=== PATIENT | male | born 1970 | race Caucasian/White ===

== ENCOUNTER 2020-12-15 21:49 | Inpatient (IN) | payer OTHER ==
[~2020-12-15] VITALS: Ht 182.8 cm; Wt 83.0 kg
--- NOTE | 2020-12-15 22:00 | ED General ---
General Stated Complaint: CP Source of Information: Patient, Police Exam Limitations: No Limitations History of Present Illness Date Seen by Provider: Dec 15, 2020 Time Seen by Provider: 22:00 Initial Comments Patient is a 50-year-old incarcerated male currently residing in [facility] who presents with substernal chest pain starting 90 minutes prior to ED arrival. Onset was at rest. It is nonradiating. States scribed as dull and nonreproducible. It is not relieved with position change to rest. Patient noted to be hypertensive one nineties over one tens. He has been incarcerated 5 days and only resumed his high blood pressure medication 2 days ago. Patient takes losartan and is unsure of the dose. He denies shortness of breath nausea vomiting sweats. Denies back pain, flank pain. No history of CAD, aneurysm or dissection. History of IV drug use and HIV. Patient currently incarcerated for drug-related charges including possession of methamphetamines. Reports a loose cough. No fever chills. No nausea or vomiting. No other symptoms or complaints. 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 Timing/Duration: 1-3 Hours Severity: Moderate Modifying Factors: improves with Other Allergies and Home Medications Allergies Uncoded Allergies: HIV Medication (Allergy, Unknown, 12/15/20) He is unsure of what the name of the medication is, he just knows its an HIV medication. Patient Home Medication List Home Medication List Reviewed: Yes Review of Systems Review of Systems Constitutional: see HPI EENTM: see HPI Respiratory: see HPI Cardiovascular: see HPI Gastrointestinal: see HPI Genitourinary: see HPI Musculoskeletal: see HPI Psychiatric/Neurological: See HPI Hematologic/Lymphatic: See HPI Immunological/Allergic: see HPI All Other Systems Reviewed Negative Unless Noted: Yes Past Ethhyqn-Nfohwv-Jovhda Hx Patient Social History Tobacco Use?: Yes Physical Exam Vital Signs Vital Signs - First Documented 12/15/20 21:50 Temp 36.6 Pulse 114 Resp 18 B/P (MAP) 159/118 (132) Pulse Ox 99 O2 Delivery Room Air Capillary Refill : Height, Weight, BMI Height: '" Weight: lbs. oz. kg; BMI Method: General Appearance: No Apparent Distress, Anxious Eyes: Bilateral Eye Normal Inspection, Bilateral Eye PERRL, Bilateral Eye EOMI HEENT: PERRL/EOMI, Normal ENT Inspection, Pharynx Normal Neck: Non Tender, Supple Respiratory: Chest Non Tender, Lungs Clear Cardiovascular: Regular Rate, Rhythm, No Edema Gastrointestinal: Non Tender, Soft Back: Normal Inspection, No CVA Tenderness Extremity: No Calf Tenderness Neurologic/Psychiatric: Alert, Oriented x3 Skin: Normal Color, Diaphoresis Focused Exam Sepsis Stage: Ruled Out Progress/Results/Core Measures Suspected Sepsis SIRS Temperature: Pulse: Respiratory Rate: Laboratory Tests 12/15/20 21:55: White Blood Count 14.6H Blood Pressure / Mean: Laboratory Tests 12/15/20 21:55: Creatinine 0.90, Platelet Count 369, Total Bilirubin 0.4 Results/Orders Lab Results Laboratory Tests Test 12/15/20 21:55 Range/Units White Blood Count 14.6 H 4.3-11.0 10^3/uL Red Blood Count 5.41 4.30-5.52 10^6/uL Hemoglobin 16.3 13.3-17.7 g/dL Hematocrit 48 40-54 % Mean Corpuscular Volume 88 80-99 fL Mean Corpuscular Hemoglobin 30 25-34 pg Mean Corpuscular Hemoglobin Concent 34 32-36 g/dL Red Cell Distribution Width 13.2 10.0-14.5 % Platelet Count 369 130-400 10^3/uL Mean Platelet Volume 9.8 9.0-12.2 fL Immature Granulocyte % (Auto) 0 % Neutrophils (%) (Auto) 46 42-75 % Lymphocytes (%) (Auto) 44 12-44 % Monocytes (%) (Auto) 8 0-12 % Eosinophils (%) (Auto) 1 0-10 % Basophils (%) (Auto) 1 0-10 % Neutrophils # (Auto) 6.7 1.8-7.8 X 10^3 Lymphocytes # (Auto) 6.4 H 1.0-4.0 X 10^3 Monocytes # (Auto) 1.2 H 0.0-1.0 X 10^3 Eosinophils # (Auto) 0.1 0.0-0.3 10^3/uL Basophils # (Auto) 0.1 0.0-0.1 10^3/uL Immature Granulocyte # (Auto) 0.0 0.0-0.1 10^3/uL Sodium Level 140 135-145 MMOL/L Potassium Level 3.5 L 3.6-5.0 MMOL/L Chloride Level 99 98-107 MMOL/L Carbon Dioxide Level 27 21-32 MMOL/L Anion Gap 14 5-14 MMOL/L Blood Urea Nitrogen 10 7-18 MG/DL Creatinine 0.90 0.60-1.30 MG/DL Estimat Glomerular Filtration Rate 89 BUN/Creatinine Ratio 11 Glucose Level 122 H 70-105 MG/DL Calcium Level 10.0 8.5-10.1 MG/DL Corrected Calcium 8.5-10.1 MG/DL Total Bilirubin 0.4 0.1-1.0 MG/DL Aspartate Amino Transf (AST/SGOT) 15 5-34 U/L Alanine Aminotransferase (ALT/SGPT) 14 0-55 U/L Alkaline Phosphatase 103 40-136 U/L Troponin I < 0.30 <0.30 NG/ML Total Protein 8.2 6.4-8.2 GM/DL Albumin 4.8 H 3.2-4.5 GM/DL My Orders Orders - OSCAR KIM DO Troponin I Fs (12/15/20 21:59) Chest 1 View Ap/Pa Only (12/15/20 21:59) Ekg-Prn For Chest Pain Or Rhyt (12/15/20 21:59) Cbc With Automated Diff (12/15/20 21:59) Comprehensive Metabolic Panel (12/15/20 21:59) Manual Differential (12/15/20 21:55) Drug Screen Stat (Urine) (12/15/20 22:16) Fibrin Degradation Products (12/15/20 22:16) Aspirin Chewable Tablet (Baby Aspirin Ch (12/16/20 09:00) Nitroglycerin Ointment (Nitrobid Ointme (12/15/20 22:30) Labetalol Injection (Normodyne Injection (12/15/20 22:30) Ekg Tracing (12/15/20 22:32) Ed Iv/Invasive Line Start (12/15/20 22:32) Vital Signs/I&O 12/15/20 21:50 Temp 36.6 Pulse 114 Resp 18 B/P (MAP) 159/118 (132) Pulse Ox 99 O2 Delivery Room Air Capillary Refill : Departure Communication (Admissions) EKG: Sinus rhythm with left anterior fascicular block, anterior septal Q waves. No acute ST-T wave changes. Chest x-ray: No acute cardiopulmonary disease. Atypical chest pain in the setting of accelerated hypertension. No acute EKG changes. Troponin negative. D-dimer pending. Repeat IV labetalol, aspirin and nitroglycerin given. Blood pressure improved. Patient resting more comfortably. Anticipate admission to hospitalist service at [facility] Impression Primary Impression: Chest pain Additional Impression: Accelerated hypertension Disposition: ADMITTED INPATIENT Condition: Stable Admissions Decision to Admit Reason: Admit from ER (General) Decision to Admit/Date: Dec 15, 2020 Time/Decision to Admit Time: 22:37 OSCAR KIM DO Dec 15, 2020 22:00
[2020-12-15 22:01] LABS: HEMATOCRIT 48 % (40-54); HEMOGLOBIN 16.3 g/dL (13.3-17.7); MEAN CORPUSCULAR HEMOGLOBIN 30 pg (25-34); WHITE BLOOD COUNT 14.6 10^3/uL (4.3-11.0)
[2020-12-15 22:02] LABS: BASOPHILS # (AUTO) 0.1 10^3/uL (0.0-0.1); BASOPHILS % (AUTO) 1 % (0-10); EOSINOPHILS # (AUTO) 0.1 10^3/uL (0.0-0.3); EOSINOPHILS % (AUTO) 1 % (0-10); LYMPHOCYTES # (AUTO) 6.4 X 10^3 (1.0-4.0); LYMPHOCYTES % (AUTO) 44 % (12-44); MEAN CORPUSCULAR HGB CONC 34 g/dL (32-36); MEAN CORPUSCULAR VOLUME 88 fL (80-99); MEAN PLATELET VOLUME 9.8 fL (9.0-12.2); MONOCYTES # (AUTO) 1.2 X 10^3 (0.0-1.0); MONOCYTES % (AUTO) 8 % (0-12); NEUTROPHILS # (AUTO) 6.7 X 10^3 (1.8-7.8); NEUTROPHILS % (AUTO) 46 % (42-75); PLATELET COUNT 369 10^3/uL (130-400)
--- NOTE | 2020-12-15 22:13 | Diagnostic Imaging Report ---
EXAMINATION: Chest 1 view. HISTORY: Chest pain. COMPARISON: None available. FINDINGS: Heart size and pulmonary vasculature are normal. The lungs are clear without consolidation, pleural effusion or pneumothorax. The osseous structures are intact. IMPRESSION: No acute radiographic abnormality in the chest. Dictated by: Dictated on workstation # [id number]
[2020-12-15 22:30] LABS: ALANINE AMINOTRANSFERASE 14 U/L (0-55); ALBUMIN 4.8 GM/DL (3.2-4.5); ALKALINE PHOSPHATASE 103 U/L (40-136); BILIRUBIN,TOTAL 0.4 MG/DL (0.1-1.0); BUN/CREATININE RATIO 11; CARBON DIOXIDE 27 MMOL/L (21-32); CHLORIDE 99 MMOL/L (98-107); GFR ESTIMATED 89; GLUCOSE 122 MG/DL (70-105); POTASSIUM 3.5 MMOL/L (3.6-5.0); SODIUM 140 MMOL/L (135-145); TOTAL PROTEIN 8.2 GM/DL (6.4-8.2)
[2020-12-15] MEDS ORDERED: NITROGLYCERIN 2% OINT 1 GM UNIT DOSE PACKET TOP ONE (22:30)
[2020-12-15] MEDS ORDERED: LABETALOL HCL 20 MG/4 ML VIAL IV ONE ×2 (22:30→22:45)
[2020-12-15] MEDS ORDERED: ASPIRIN 81 MG CHEW (CHILDREN'S ASA) ONE (22:35)
[2020-12-15 22:38] LABS: BAND NEUTROPHILS 1 %; EOSINOPHILS % (MANUAL) 1 %; LYMPHOCYTES % (MANUAL) 45 %; MONOCYTES % (MANUAL) 7 %; NEUTROPHILS % (MANUAL) 46 %
[2020-12-15] MEDS ORDERED: FAMOTIDINE 20MG/2ML IV (PEPCID) IVP ONE (22:45)
[2020-12-15 23:02] LABS: AMPHETAMINE SCREEN, URINE NEGATIVE (NEGATIVE); BARBITURATE SCREEN URINE NEGATIVE (NEGATIVE); BENZODIAZEPINES SCREEN URINE NEGATIVE (NEGATIVE); CANNABINOID SCREEN, URINE POSITIVE (NEGATIVE); COCAINE SCREEN URINE NEGATIVE (NEGATIVE); METHADONE STAT NEGATIVE (NEGATIVE); METHAMPHETAMINE SCREEN URINE S NEGATIVE (NEGATIVE); OPIATE SCREEN URINE NEGATIVE (NEGATIVE); OXYCODONE STAT NEGATIVE (NEGATIVE); PROPOXYPHENE STAT NEGATIVE (NEGATIVE); TRICYCLIC ANTIDEPRESSANTS SCRE NEGATIVE (NEGATIVE)
[2020-12-16 00:47] VITALS: BP 136/92
[2020-12-16] MEDS ORDERED: LABETALOL HCL 20 MG/4 ML VIAL IV PRN (01:00)
[2020-12-16 04:00] VITALS: BP 117/82
[2020-12-16] MEDS: NITROGLYCERIN 2% OINT 1 GM UNIT DOSE PACKET TOP SCH ×2 (05:38→13:08)
[2020-12-16 05:53] LABS: BASOPHILS # (AUTO) 0.1 10^3/uL (0.0-0.1); BASOPHILS % (AUTO) 1 % (0-10); EOSINOPHILS # (AUTO) 0.2 10^3/uL (0.0-0.3); EOSINOPHILS % (AUTO) 1 % (0-10); HEMATOCRIT 42 % (40-54); HEMOGLOBIN 14.2 g/dL (13.3-17.7); LYMPHOCYTES # (AUTO) 5.8 10^3/uL (1.0-4.0); LYMPHOCYTES % (AUTO) 38 % (12-44); MEAN CORPUSCULAR HEMOGLOBIN 30 pg (25-34); MEAN CORPUSCULAR HGB CONC 34 g/dL (32-36); MEAN CORPUSCULAR VOLUME 88 fL (80-99); MEAN PLATELET VOLUME 9.7 fL (9.0-12.2); MONOCYTES # (AUTO) 1.3 10^3/uL (0.0-1.0); MONOCYTES % (AUTO) 9 % (0-12); NEUTROPHILS # (AUTO) 7.9 10^3/uL (1.8-7.8); NEUTROPHILS % (AUTO) 51 % (42-75); PLATELET COUNT 317 10^3/uL (130-400); WHITE BLOOD COUNT 15.4 10^3/uL (4.3-11.0)
[2020-12-16 06:12] LABS: CHLORIDE 105 MMOL/L (98-107); POTASSIUM 3.5 MMOL/L (3.6-5.0); SODIUM 140 MMOL/L (135-145)
[2020-12-16 06:14] LABS: CALCIUM 9.3 MG/DL (8.5-10.1); GLUCOSE 98 MG/DL (70-105)
[2020-12-16 06:16] LABS: CARBON DIOXIDE 22 MMOL/L (21-32)
[2020-12-16 06:18] LABS: CREATININE SERUM 0.87 MG/DL (0.60-1.30); GFR ESTIMATED 92
[2020-12-16 06:19] LABS: BUN/CREATININE RATIO 14
[2020-12-16 07:57] VITALS: BP 121/70
[2020-12-16] MEDS ORDERED: ASPIRIN 81 MG CHEW (CHILDREN'S ASA) PO SCH (09:00)
[2020-12-16] MEDS ORDERED: ASPIRIN E.C. 81 MG (ECOTRIN) TAB PO SCH (09:00)
--- NOTE | 2020-12-16 09:55 | Short Stay Summary-Hospitalist ---
History of Present Illness HPI/Chief Complaint Patient is a 50-year-old male with a past medical history of hypertension, IV drug abuse, and HIV with reported undetectable viral load who presented to the emergency department due to abrupt onset of chest pain with nausea and vomiting. He states he was at rest when this started but was very severe. He was very nauseous and vomited multiple times. [facility] He denies any shortness of breath or cough. He was found to be quite hypertensive as well. Apparently he has been in custody for 5 days but was only restarted on his medications 2 days ago. He was treated with nitro and aspirin without much improvement in his symptoms. But then was given labetalol IV for his blood pressure and famotidine for the nausea and vomiting and has not had much pain since. He has never had an EGD in the past. He denies any history of heart disease. He has been monitored overnight for serial troponins and on telemetry. Source: patient Date Seen 12/16/20 Time Seen by a Provider: 09:50 Attending Physician Julius Winter MD PCP No,Local Physician Referring Physician Date of Admission Dec 16, 2020 at 00:45 Home Medications & Allergies Home Medications Reviewed patient Home Medication Reconciliation performed by pharmacy medication reconciliations ict help desk technician and/or nursing. Patients Allergies have been reviewed. Allergies Allergies Uncoded Allergies HIV Medication ( Allergy, Unknown, 12/15/20) He is unsure of what the name of the medication is, he just knows its an HIV medication. Past Vdetuhm-Gtbvos-Yxebtp Hx Patient Social History Tobacco Use?: No Smoking Status: Former Smoker Smokeless Tobacco Frequency: Current Everyday User Use of E-Cig and/or Vaping dev: Yes E-Cig or Vaping type used: Nicotine Substance use?: Yes Substance type: Marijuana Additional substance use comme: Past meth and cocaine use Alcohol Use?: Yes Alcohol Frequency: Once in a while Pt feels they are or have been: No Immunizations Up To Date First/Initial COVID19 Vaccinat: n/a Current Status Advance Directives: No Communicates: Verbally Primary Language: Sami Preferred Spoken Language: Sami Is interpretation needed?: No Sensory deficits: Vision impairment Past Medical History Surgeries: Abdominal (SPLENECTOMY) Hypertension HIV/AIDS: Yes Review of Systems Constitutional: No chills, No fever EENTM: no symptoms reported Respiratory: No cough, No dyspnea on exertion, No short of breath Cardiovascular: chest pain; No edema, No Hx of Intervention, No palpitations, No syncope Gastrointestinal: abdominal pain; No constipation, No diarrhea; nausea, vomiting Genitourinary: no symptoms reported Musculoskeletal: no symptoms reported Skin: no symptoms reported Psychiatric/Neurological: No Symptoms Reported Physical Exam Physical Exam Vital Signs Vital Signs - First Documented 12/15/20 21:50 Temp 36.6 Pulse 114 Resp 18 B/P (MAP) 159/118 (132) Pulse Ox 99 O2 Delivery Room Air Capillary Refill : Less Than 3 Seconds Height, Weight, BMI Height: '" Weight: lbs. oz. kg; 24.83 BMI Method: General Appearance: No Apparent Distress, WD/WN Eyes: Bilateral Eye Normal Inspection, Bilateral Eye PERRL, Bilateral Eye EOMI HEENT: PERRL/EOMI, Moist Mucous Membranes; No Scleral Icterus (L), No Scleral Icterus (R) Neck: Non Tender, Supple Respiratory: Lungs Clear, No Accessory Muscle Use, No Respiratory Distress Cardiovascular: Regular Rate, Rhythm, No Edema, No Murmur Gastrointestinal: Normal Bowel Sounds, Non Tender, Soft; No Distended, No Guarding Extremity: Normal Capillary Refill, No Calf Tenderness, No Pedal Edema Neurologic/Psychiatric: Alert, Oriented x3, Normal Mood/Affect Skin: Normal Color, Warm/Dry Results Results/Procedures Labs Laboratory Tests 12/15/20 21:55 12/16/20 05:45 Patient resulted labs reviewed. Imaging: Reviewed Imaging Report Imaging [facility] [place] NAME: SHANTE MOCTEZUMA [facility] REC#: [id number] PT STATUS: REG ER : 1970 PHYSICIAN: OSCAR KIM DO ADMIT DATE: 12/15/20/ER FS Signed Date of Exam:12/15/20 CHEST 1 VIEW AP/PA ONLY EXAMINATION: Chest 1 view. HISTORY: Chest pain. COMPARISON: None available. FINDINGS: Heart size and pulmonary vasculature are normal. The lungs are clear without consolidation, pleural effusion or pneumothorax. The osseous structures are intact. IMPRESSION: No acute radiographic abnormality in the chest. Dictated by: Dictated on workstation # [id number] Dict: 12/15/202209 Trans: 12/15/202219 [facility] [id number] Interpreted by: SONY JORGE DO Electronically signed by: SONY JORGE DO 12/15/202219 Short Stay Diagnosis Discharge Diagnosis-Short Stay Admission Diagnosis Chest pain Final Discharge Diagnosis Chest pain Conclusion Plan Chest pain HTN Seems noncaridac in nature Troponin negative x3 Cardiology consulted, appreciate recs Continue home antihypertensives Given it occurred in conjunction with nausea and vomiting likely Gi Will start on PPI Recommended outpatient EGD Can DC home if no further inpatient evaluation warranted by Cardiology s/p splenectomy He is unsure of when his last pneumovax Recommended he get up to date on vaccination- he declined inpatient vaccine for this and COVID HIV+ reports undetectable viral load Continue on [facility] Clinical Quality Measures AMI/AHF: ASA po Prior to arrival: JULIUS Galaviz MD Dec 16, 2020 09:55
[2020-12-16 09:59] LABS: TRIGLYCERIDES 94 MG/DL (<150); VLDL CHOLESTEROL 19 MG/DL (5-40)
[2020-12-16] MEDS ORDERED: ANTACID SUSP 30 ML UDC (MYLANTA) PO ONE (10:00)
[2020-12-16] MEDS ORDERED: LIDOCAINE 2% VISCOUS 15 ML UDC PO ONE ×2 (10:00→10:30)
[2020-12-16] MEDS ORDERED: PANTOPRAZOLE 40 MG (PROTONIX) TAB PO ONE (10:00)
[2020-12-16 10:04] LABS: CHOLESTEROL 190 MG/DL (< 200)
[2020-12-16 10:05] LABS: HDL CHOLESTEROL 33 MG/DL (40-60)
--- NOTE | 2020-12-16 10:05 | Discharge Inst-Simple/Standard ---
Discharge Inst-Standard Patient Instructions/Follow Up Plan of Care/Instructions/FU: Please continue to take your medications as written. Please follow up with your primary care doctor to follow up this hospital stay.. Activity as Tolerated: Yes Discharge Diet: No Restrictions Return to The Hospital For: Chest pain, shortness of breath, any fever, weakness, confusion, if you feel you are getting worse. JULIUS HERNANDEZ MD Dec 16, 2020 10:05
[2020-12-16] MEDS ORDERED: fentaNYL INJ 100 MCG/2 ML AMP ONE (10:08)
[2020-12-16] MEDS ORDERED: fentaNYL INJ 100 MCG/2 ML AMP IVP ONE (10:15)
[2020-12-16 11:16] VITALS: BP 143/89
--- NOTE | 2020-12-16 13:02 | Consultation-Cardiology ---
HPI-Cardiology Cardiology Consultation: Date of Consultation 12/16/2020 Date of Admission 12/16/2020 Attending Physician Kristi Winter MD Admitting Physician No,Local Physician Consulting Physician AFIA HUFFMAN JR, MD HPI: Time Seen by a Provider: 12:57 Chief Complaint: Reason for consultation: Chest pain. Forest is a 50-year-old male with no known history of coronary artery disease. [facility] Yesterday evening while he was at rest, he developed substernal chest tightness associated with shortness of breath. He describes this as a pressure in the center of his chest. Initially this was mild. However, as time went on, the chest discomfort became more intense and he notified the guards who brought him to the emergency room for further evaluation. It was it admitted for further evaluation. Overnight, his chest discomfort persisted. This remained in the center of his chest. He denies radiation. I came by to see the patient earlier this morning but at that point he was having severe 10/10 chest pain. He could not even sit still enough to get a good electrocardiogram. He was given intravenous fentanyl and a gastrointestinal cocktail and his chest discomfort subsided. He has had some heartburn in the past but nothing like what occurred today. When I came by to see him again early this afternoon after he had some additional testing, he had just had a drink of water and his chest discomfort was starting to come back. He denies dyspnea on exertion, paroxysmal nocturnal dyspnea, orthopnea, palpitations, lightheadedness, syncope, or ankle edema. He denies any cough, fever, or chills. Certain portions of this document may have been dictated utilizing voice recognition technology. Inherent to this technology, typographical and grammatical errors may exist. As much as I am diligent to identify and correct these mistakes, some errors may remain in the document. Review of Systems-Cardiology Review of Systems Other comments Review of 10 organ systems is as per the history of present illness, otherwise negative. All Other Systems Reviewed Negative Unless Noted: Yes OQS-Ijjmsb-Amdwqi Hx Patient Social History Smoking Status: Light Tobacco Smoker Have you traveled recently?: No Alcohol Use?: Yes Substance type: Marijuana Pt feels they are or have been: No Past Medical History PMH As described under Assessment. Family Medical History Family Medical History: The patient does not know of any family history of premature coronary artery disease. Allergies and Home Medications Allergies Uncoded Allergies: HIV Medication (Allergy, Unknown, 12/15/20) He is unsure of what the name of the medication is, he just knows its an HIV medication. Patient Home Medication List Home Medication List Reviewed: Yes Exam Vital Signs Vital Signs Date Time Temp Pulse Resp B/P (MAP) Pulse Ox O2 Delivery O2 Flow Rate FiO2 12/16/20 11:16 36.5 65 20 143/89 (107) 93 Room Air Physical Exam General: Alert. No acute distress. Well nourished and appears stated age. Eye: Extraocular movements are intact. Conjunctivae are clear. There are no xanthelasma. HENT: Normocephalic. Atraumatic. Carotid pulsations 2/2 without bruits. Neck: Jugular venous pressure does not appear elevated. No thyromegaly appreciated. Respiratory: Lungs are clear to auscultation. Respirations are non-labored. Breath sounds are equal. Symmetrical chest wall expansion. Cardiovascular: Normal rate. Regular rhythm. No murmur. No gallop. Point of maximal impulse is not appear displaced. Good pulses equal in all extremities. No edema. Gastrointestinal: Soft. Normal bowel sounds. Skin: Skin turgor is normal. There is no pallor. Musculoskeletal: No kyphosis or scoliosis appreciated. Neurologic: Alert and oriented to person, place, time. Cranial nerves 3-12 appear grossly intact. The patient has good motor tone strength in the upper and lower extremities bilaterally. Psychiatric: Cooperative. Appropriate mood & affect. Labs Laboratory Tests Test 12/15/20 21:55 12/15/20 22:37 12/16/20 02:00 12/16/20 02:23 Range/Units White Blood Count 14.6 H 4.3-11.0 10^3/uL Red Blood Count 5.41 4.30-5.52 10^6/uL Hemoglobin 16.3 13.3-17.7 g/dL Hematocrit 48 40-54 % Mean Corpuscular Volume 88 80-99 fL Mean Corpuscular Hemoglobin 30 25-34 pg Mean Corpuscular Hemoglobin Concent 34 32-36 g/dL Red Cell Distribution Width 13.2 10.0-14.5 % Platelet Count 369 130-400 10^3/uL Mean Platelet Volume 9.8 9.0-12.2 fL Immature Granulocyte % (Auto) 0 % Neutrophils (%) (Auto) 46 42-75 % Lymphocytes (%) (Auto) 44 12-44 % Monocytes (%) (Auto) 8 0-12 % Eosinophils (%) (Auto) 1 0-10 % Basophils (%) (Auto) 1 0-10 % Neutrophils # (Auto) 6.7 1.8-7.8 X 10^3 Lymphocytes # (Auto) 6.4 H 1.0-4.0 X 10^3 Monocytes # (Auto) 1.2 H 0.0-1.0 X 10^3 Eosinophils # (Auto) 0.1 0.0-0.3 10^3/uL Basophils # (Auto) 0.1 0.0-0.1 10^3/uL Immature Granulocyte # (Auto) 0.0 0.0-0.1 10^3/uL Neutrophils % (Manual) 46 % Lymphocytes % (Manual) 45 % Monocytes % (Manual) 7 % Eosinophils % (Manual) 1 % Band Neutrophils 1 % D-Dimer 0.35 0.00-0.49 UG/ML Sodium Level 140 135-145 MMOL/L Potassium Level 3.5 L 3.6-5.0 MMOL/L Chloride Level 99 98-107 MMOL/L Carbon Dioxide Level 27 21-32 MMOL/L Anion Gap 14 5-14 MMOL/L Blood Urea Nitrogen 10 7-18 MG/DL Creatinine 0.90 0.60-1.30 MG/DL Estimat Glomerular Filtration Rate 89 BUN/Creatinine Ratio 11 Glucose Level 122 H 70-105 MG/DL Calcium Level 10.0 8.5-10.1 MG/DL Corrected Calcium 8.5-10.1 MG/DL Total Bilirubin 0.4 0.1-1.0 MG/DL Aspartate Amino Transf (AST/SGOT) 15 5-34 U/L Alanine Aminotransferase (ALT/SGPT) 14 0-55 U/L Alkaline Phosphatase 103 40-136 U/L Troponin I < 0.30 < 0.028 <0.028 NG/ML Total Protein 8.2 6.4-8.2 GM/DL Albumin 4.8 H 3.2-4.5 GM/DL Urine Opiates Screen NEGATIVE NEGATIVE Urine Oxycodone Screen NEGATIVE NEGATIVE Urine Methadone Screen NEGATIVE NEGATIVE Urine Propoxyphene Screen NEGATIVE NEGATIVE Urine Barbiturates Screen NEGATIVE NEGATIVE Ur Tricyclic Antidepressants Screen NEGATIVE NEGATIVE Urine Phencyclidine Screen NEGATIVE NEGATIVE Urine Amphetamines Screen NEGATIVE NEGATIVE Urine Methamphetamines Screen NEGATIVE NEGATIVE Urine Benzodiazepines Screen NEGATIVE NEGATIVE Urine Cocaine Screen NEGATIVE NEGATIVE Urine Cannabinoids Screen POSITIVE H NEGATIVE SARS-CoV-2 RNA (RT-PCR) Not Detected Not Detecte Test 12/16/20 05:45 12/16/20 05:49 Range/Units White Blood Count 15.4 H 4.3-11.0 10^3/uL Red Blood Count 4.76 4.30-5.52 10^6/uL Hemoglobin 14.2 13.3-17.7 g/dL Hematocrit 42 40-54 % Mean Corpuscular Volume 88 80-99 fL Mean Corpuscular Hemoglobin 30 25-34 pg Mean Corpuscular Hemoglobin Concent 34 32-36 g/dL Red Cell Distribution Width 13.1 10.0-14.5 % Platelet Count 317 130-400 10^3/uL Mean Platelet Volume 9.7 9.0-12.2 fL Immature Granulocyte % (Auto) 0 % Neutrophils (%) (Auto) 51 42-75 % Lymphocytes (%) (Auto) 38 12-44 % Monocytes (%) (Auto) 9 0-12 % Eosinophils (%) (Auto) 1 0-10 % Basophils (%) (Auto) 1 0-10 % Neutrophils # (Auto) 7.9 H 1.8-7.8 10^3/uL Lymphocytes # (Auto) 5.8 H 1.0-4.0 10^3/uL Monocytes # (Auto) 1.3 H 0.0-1.0 10^3/uL Eosinophils # (Auto) 0.2 0.0-0.3 10^3/uL Basophils # (Auto) 0.1 0.0-0.1 10^3/uL Immature Granulocyte # (Auto) 0.1 0.0-0.1 10^3/uL Sodium Level 140 135-145 MMOL/L Potassium Level 3.5 L 3.6-5.0 MMOL/L Chloride Level 105 98-107 MMOL/L Carbon Dioxide Level 22 21-32 MMOL/L Anion Gap 13 5-14 MMOL/L Blood Urea Nitrogen 12 7-18 MG/DL Creatinine 0.87 0.60-1.30 MG/DL Estimat Glomerular Filtration Rate 92 BUN/Creatinine Ratio 14 Glucose Level 98 70-105 MG/DL Calcium Level 9.3 8.5-10.1 MG/DL Troponin I < 0.028 <0.028 NG/ML Triglycerides Level 94 <150 MG/DL Cholesterol Level 190 < 200 MG/DL LDL Cholesterol Direct 160 H 1-129 MG/DL VLDL Cholesterol 19 5-40 MG/DL HDL Cholesterol 33 L 40-60 MG/DL Erythrocyte Sedimentation Rate 5 0-30 MM/HR Radiology Echocardiogram showed normal left ventricular chamber size, wall thickness and systolic function with an estimated ejection fraction of 65-70% with no regional wall motion abnormalities identified. The left ventricular diastolic parameters were normal. No significant pericardial effusion was identified. No significant valvular abnormalities were identified. ECG Impression ECG Comment Sinus rhythm with left anterior hemiblock, poor R wave progression and nonspecific T wave changes. Diagnosis/Problems Diagnosis/Problems (1) Chest pain Status: Acute Assessment & Plan: Exact etiology unclear. Despite having almost 12 hours of chest pain, he had 3 negative troponin levels. This effectively rules out a angie cardial infarction. He had a negative sedimentation rate which makes pericarditis extremely unlikely. There were no wall motion abnormalities on his echocardiogram while he was still having a slight amount of chest discomfort. He just had a drink of water and his chest discomfort seems to be returning. I suspect he has noncardiac chest pain, possibly due to gastroesophageal reflux disease accompanied by esophageal spasm. I recommend he be placed on proton pump inhibitor. From a cardiac standpoint, he can be discharged. However, I am concerned that pain control may be an issue after he leaves. (2) Abnormal ECG Assessment & Plan: He has a borderline abnormal electrocardiogram showing left anterior hemiblock with poor R wave progression. However, there are no ischemic changes and his echocardiogram did not show any regional wall motion abnormalities while he was still having active chest discomfort. This is likely just a primary conduction abnormality of no clinical significance. The poor R wave progression may have just been due to lead placement. There is no indication for stress testing at this time. (3) Hypertensive urgency Assessment & Plan: Although not documented, by report from the emergency room physician, his systolic blood pressure was over 190 mmHg when he first presented. He was also having active chest pain. His blood pressures are now improved. His outpatient antihypertensive medication needs to be resumed. (4) Mixed hyperlipidemia Assessment & Plan: He did not report a history of hyperlipidemia but his LDL level is fairly elevated. This can be followed after discharge. I do not see any strong indication to start statin medication at this time. (5) Primary hypertension Assessment & Plan: As above, resume outpatient antihypertensive medication. AFIA HUFFMAN JR, MD Dec 16, 2020 13:01
[2020-12-16] MEDS ORDERED: PANT40TA52 PO ×2 (14:12→14:33)
[2020-12-16] MEDS ORDERED: ASPI-1238 PO ×2 (14:13→14:33)
[2020-12-16] MEDS ORDERED: PANTOPRAZOLE 40 MG (PROTONIX) VIAL IV ONE ×2 (15:15)
--- NOTE | 2020-12-16 15:54 | Conscious Sedation/ASA ---
Conscious Sedation Pre-Proced Time 15:00 ASA Score 2 For ASA 3 and 4: Consider anesthesia and medical clearance. Also, for patients with a history of failed moderate sedation consider anesthesia. Airway Lungs Heart ASA score ASA 1: a normal healthy patient ASA 2: a patient with a mild systemic disease (mid diabetes, controlled hypertension, obesity ASA 3: a patient with a severe systemic disease that limits activity (angina, COPD, prior Myocardial infarction) ASA 4: a patient with an incapacitating disease that is a constant threat to life (CHF, renal failure) ASA 5: a moribund patient not expected to survive 24 hrs. (ruptured aneurysm) ASA 6: a declared brain- patient whose organs are being harvested. For emergent operations, add the letter E after the classification Mallampati Classification Grade 2 Sedation Plan Analgesia, Amnesia, Plan communicated to team members, Discussed options with patient/fam, Discussed risks with patient/fam The patient is an appropriate candidate to undergo the planned procedure, sedation, and anesthesia. The patient immediately re-assessed prior to indication. JOSE PUGH MD Dec 16, 2020 15:54
--- NOTE | 2020-12-16 15:54 | Progress Note-Pre Operative ---
Pre-Operative Progress Note H&P Reviewed The H&P was reviewed, patient examined and no changes noted. Date Seen by Provider: Dec 16, 2020 Time Seen by Provider: 15:00 Date H&P Reviewed: Dec 16, 2020 Time H&P Reviewed: 15:00 Pre-Operative Diagnosis: sx GERD/PUD JOSE PUGH MD Dec 16, 2020 15:54
[2020-12-16 16:03] VITALS: BP 137/96
--- NOTE | 2020-12-16 16:15 | CONSULTATION REPORT ---
DATE OF SERVICE: ADMITTING PHYSICIAN: Dr. Winter. HISTORY OF PRESENT ILLNESS: The patient is a 50-year-old incarcerated male who resides at the [facility]. He presented with substernal chest pain, which was nonradiating. He reports that he does have some history of gastroesophageal reflux disease as well. He underwent cardiac workup, which was negative. Since being admitted, he has been placed on Protonix 40 mg b.i.d. He states that his symptoms improved slightly; however, had another exacerbation of pain in the epigastric region. The patient does have a history of IV drug abuse as well as HIV positive. He was incarcerated for drug related position and using methamphetamines. PAST MEDICAL HISTORY: HIV, gastroesophageal reflux disease. PAST SURGICAL HISTORY: None. ALLERGIES: States SOME FORM OF HIV MEDICATION; however, unsure of the name. MEDICATIONS: Aspirin 81 mg daily, Protonix 40 mg daily. SOCIAL HISTORY: Positive for illicit drugs and was also found to be positive for THC. FAMILY HISTORY: Noncontributory. VITAL SIGNS: Temperature 36.5, blood pressure 143/89, pulse 63, respirations 20, pulse ox 98% on room air. REVIEW OF SYSTEMS: Well-nourished male currently in no acute distress. He is not experiencing any shortness of breath or difficulty breathing. No chest pain, palpitations, diaphoresis. Intermittent nausea; however, no vomiting. He does report epigastric crampy pain as well as burning sensation. No hematemesis, no coffee ground emesis. He states that his bowel movements have been normal. No red blood per rectum, no dark tarry stools. No fever, chills, no recent inadvertent weight loss. All other review of systems negative. PHYSICAL EXAMINATION: CHEST: Clear. Good breath sounds bilaterally. HEART: Regular, no murmurs. EXTREMITIES: No lower extremity edema, negative Homans sign. HEENT: No scleral icterus. NECK: No cervical lymphadenopathy. ABDOMEN: Soft, nondistended. There is mild discomfort in the epigastric region on deep palpation. No peritoneal signs. SKIN: Warm, dry. LABORATORY DATA: WBC 15.4, hemoglobin 14.2, hematocrit 42, platelets 317. BUN 12, creatinine 0.87. ASSESSMENT AND PLAN: A 50-year-old male with signs and symptoms of gastroesophageal reflux disease as well as a possible peptic ulcer disease. We will schedule him for an EGD as well as biopsies as appropriate. 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 Job ID: [id number] DocumentID: [id number] Dictated Date: 12/16/2020 15:51:38 Blueprint Assembler Date: 12/16/2020 16:14:17 Dictated By: JOSE PUGH MD
[2020-12-16 20:05] VITALS: BP 132/83
[2020-12-16] MEDS ORDERED: PANTOPRAZOLE 40 MG (PROTONIX) VIAL IV SCH (21:00)
[2020-12-16] MEDS ORDERED: PANTOPRAZOLE 40 MG (PROTONIX) TAB PO SCH (21:00)
[2020-12-17] VITALS (8 sets, daily range): BP systolic 89–135; BP diastolic 53–92
[2020-12-17 05:39] LABS: HEMATOCRIT 40 % (40-54); HEMOGLOBIN 13.7 g/dL (13.3-17.7); MEAN CORPUSCULAR HEMOGLOBIN 31 pg (25-34); MEAN CORPUSCULAR HGB CONC 34 g/dL (32-36); MEAN CORPUSCULAR VOLUME 89 fL (80-99); MEAN PLATELET VOLUME 10.2 fL (9.0-12.2); PLATELET COUNT 290 10^3/uL (130-400); WHITE BLOOD COUNT 12.2 10^3/uL (4.3-11.0)
[2020-12-17 05:53] LABS: POTASSIUM 3.5 MMOL/L (3.6-5.0)
[2020-12-17 05:54] LABS: CALCIUM 8.7 MG/DL (8.5-10.1)
[2020-12-17 05:59] LABS: CREATININE SERUM 0.81 MG/DL (0.60-1.30)
[2020-12-17] MEDS ORDERED: ASPIRIN E.C. 81 MG (ECOTRIN) TAB PO SCH (09:00)
[2020-12-17] MEDS ORDERED: PANTOPRAZOLE 40 MG (PROTONIX) VIAL IV SCH (09:00)
[2020-12-17] MEDS ORDERED: PANTOPRAZOLE 40 MG (PROTONIX) TAB PO SCH (09:00)
[2020-12-17] MEDS ORDERED: fentaNYL INJ 100 MCG/2 ML AMP ONE (09:16)
[2020-12-17] MEDS ORDERED: LIDOCAINE JELLY 2% 6 ML SYRINGE ONE (09:16)
[2020-12-17] MEDS ORDERED: MIDAZOLAM 5 MG/5 ML (VERSED) VIAL ONE (09:16)
[2020-12-17] MEDS ORDERED: NS IV 500 ML 500 ML ONE (09:18)
[2020-12-17] MEDS ORDERED: PROPOFOL INJECTION 50 ML IV ONE (09:36)
[2020-12-17] MEDS ORDERED: MIDAZOLAM 2 MG/2 ML (VERSED) VIAL ONE (09:36)
--- NOTE | 2020-12-17 09:58 | Discharge Summary ---
Diagnosis/Chief Complaint Date of Admission Dec 16, 2020 at 00:45 Date of Discharge Discharge Date: Dec 16, 2020 Admission Diagnosis Chest pain Primary Care No,Local Physician Discharge Diagnosis (1) Chest pain Status: Acute Assessment & Plan: Exact etiology unclear. Despite having almost 12 hours of chest pain, he had 3 negative troponin levels. This effectively rules out a myocardial infarction. He had a negative sedimentation rate which makes pericarditis extremely unlikely. There were no wall motion abnormalities on his echocardiogram while he was still having a slight amount of chest discomfort. He just had a drink of water and his chest discomfort seems to be returning. I suspect he has noncardiac chest pain, possibly due to gastroesophageal reflux disease accompanied by esophageal spasm. I recommend he be placed on proton pump inhibitor. From a cardiac standpoint, he can be discharged. However, I am concerned that pain control may be an issue after he leaves. (2) Abnormal ECG Assessment & Plan: He has a borderline abnormal electrocardiogram showing left anterior hemiblock with poor R wave progression. However, there are no ischemic changes and his echocardiogram did not show any regional wall motion abnormalities while he was still having active chest discomfort. This is likely just a primary conduction abnormality of no clinical significance. The poor R wave progression may have just been due to lead placement. There is no indication for stress testing at this time. (3) Hypertensive urgency Assessment & Plan: Although not documented, by report from the emergency room physician, his systolic blood pressure was over 190 mmHg when he first presented. He was also having active chest pain. His blood pressures are now improved. His outpatient antihypertensive medication needs to be resumed. (4) Mixed hyperlipidemia Assessment & Plan: He did not report a history of hyperlipidemia but his LDL level is fairly elevated. This can be followed after discharge. I do not see any strong indication to start statin medication at this time. (5) Primary hypertension Assessment & Plan: As above, resume outpatient antihypertensive medication. Discharge Summary Discharge Physical Exam Allergies: Uncoded Allergies: HIV Medication (Allergy, Unknown, 12/15/20) He is unsure of what the name of the medication is, he just knows its an HIV medication. Vitals & I&Os Vital Signs Date Time Temp Pulse Resp B/P (MAP) Pulse Ox O2 Delivery O2 Flow Rate FiO2 12/17/20 08:16 36.7 12/17/20 08:15 Room Air 12/17/20 07:00 57 12/17/20 04:00 18 127/92 (104) 95 Hospital Course Labs (last 24 hrs) Laboratory Tests 12/17/20 05:15: White Blood Count 12.2H, Red Blood Count 4.49, Hemoglobin 13.7, Hematocrit 40, Mean Corpuscular Volume 89, Mean Corpuscular Hemoglobin 31, Mean Corpuscular Hemoglobin Concent 34, Red Cell Distribution Width 13.3, Platelet Count 290, Mean Platelet Volume 10.2 12/17/20 05:25: Sodium Level 136, Potassium Level 3.5L, Chloride Level 105, Carbon Dioxide Level 21, Anion Gap 10, Blood Urea Nitrogen 10, Creatinine 0.81, Estimat Glomerular Filtration Rate 100, BUN/Creatinine Ratio 12, Glucose Level 88, Calcium Level 8.7 Patient resulted labs reviewed. Pending Labs Laboratory Tests 12/17/20 05:15: White Blood Count 12.2, Red Blood Count 4.49, Hemoglobin 13.7, Hematocrit 40, Mean Corpuscular Volume 89, Mean Corpuscular Hemoglobin 31, Mean Corpuscular Hemoglobin Concent 34, Red Cell Distribution Width 13.3, Platelet Count 290, Mean Platelet Volume 10.2 12/17/20 05:25: Sodium Level 136, Potassium Level 3.5, Chloride Level 105, Carbon Dioxide Level 21, Anion Gap 10, Blood Urea Nitrogen 10, Creatinine 0.81, Estimat Glomerular Filtration Rate 100, BUN/Creatinine Ratio 12, Glucose Level 88, Calcium Level 8.7 Imaging: Reviewed Imaging Report Discharge Home Medications: Active Scripts Active Aspirin EC (Aspirin) 81 Mg Tablet. 81 Mg PO DAILY Pantoprazole Sodium 40 Mg Tablet.dr 40 Mg PO DAILY Instructions to patient/family Please see electronic discharge instructions given to patient. Clinical Quality Measures AMI/AHF: ASA po Prior to arrival: JULIUS Galaviz MD Dec 17, 2020 09:58
[2020-12-17] MEDS ORDERED: NS IV 500 ML 500 ML IV PRN (10:00)
[2020-12-17] MEDS ORDERED: LIDOCAINE JELLY 2% 6 ML SYRINGE MM PRN (10:00)
[2020-12-17] MEDS ORDERED: HURRICAINE EXT TUBE (BENZOCAINE) XX PRN (10:00)
--- NOTE | 2020-12-17 10:44 | Progress Note-Post Operative ---
Post-Operative Progess Note Surgeon (s)/Technical Assistant (s) Surgeon JOSE PUGH MD Technical Assistant: none Pre-Operative Diagnosis sx GERD/PUD Post-Operative Diagnosis reflux esophagitis(stage 3), small HH(2cm), moderate gastritis. Procedure & Operative Findings Date of Procedure 12/17/20 Procedure Performed/Findings EGD with bx. Anesthesia Type mac Estimated Blood Loss Estimated blood loss (mL): minimal Specimens/Packing Specimens Removed ge jxn, antrum JOSE PUGH MD Dec 17, 2020 10:44
--- NOTE | 2020-12-17 11:17 | OPERATIVE REPORT ---
DATE OF SERVICE: 12/16/2020 PREOPERATIVE DIAGNOSES: Epigastric and chest pain as well as gastroesophageal reflux disease. POSTOPERATIVE DIAGNOSES: Reflux esophagitis between stage II and III, small hiatal hernia approximately 2 cm in size, moderate gastritis. No distal obstructions. PROCEDURE: EGD with biopsy. SURGEON: Jose Pugh MD. ANESTHESIA: Monitored anesthesia care. ESTIMATED BLOOD LOSS: Minimal. FINDINGS: Reflux esophagitis between stage II and III, small hiatal hernia approximately 2 cm in size, moderate gastritis. No distal obstructions. DISPOSITION: The patient tolerated the procedure well. INDICATIONS: The patient is a 50-year-old male who is currently incarcerated. He presented with chest pain and was admitted by medicine and worked up by cardiology, which did not show any cardiac etiology. He complained of continued pain in the epigastric region. He does have a history of gastroesophageal reflux disease. He does not report any hematemesis, no coffee ground emesis. DESCRIPTION OF PROCEDURE: The patient was brought to the endoscopy suite, laid in the left lateral decubitus position. After adequate IV pain and sedative medications and monitored anesthesia care, the mouthpiece was applied. The endoscope was placed in the mouth, visualized the pharynx and hypopharyngeal region. Vocal cords, epiglottis and vallecula identified and appeared to be normal. The endoscope was then gently intubated. The esophageal opening and esophagus insufflated. The endoscope was then advanced to the first, second and third portion of the esophagus at the level of the GE junction, a reflux esophagitis stage II between stage III identified. There were no ulcers or strictures identified in this region and a biopsy was taken with forceps with visualization of good hemostasis. The endoscope was then advanced into the stomach and endoscope retroflexed, visualizing a small hiatal hernia approximately 2 cm in size. There was a moderate gastritis. No formal ulcerations, polyps, or any neoplasms. A biopsy was taken of the antrum to rule out H. pylori with visualization of good hemostasis. The endoscope was then advanced to the pylorus and the first and second portion of the duodenum, which appeared normal with no ulcerations or any distal obstructions. The endoscope was then slowly withdrawn while taking a second look and suctioning of residual air with no additional findings. The patient tolerated the procedure well. We will recommend the necessary lifestyle and diet accommodation including small and more frequent meals, avoidance of eating at night as well as head elevation while lying supine. He also needs to avoid caffeinated beverages, spicy, greasy and acidic foods. We will also start him on Protonix 40 mg daily as well as Carafate 1 gram q.i.d. for the next two weeks as well on a p.r.n. basis. Job ID: [id number] DocumentID: [id number] Dictated Date: 12/17/2020 10:30:00 Treasury Manager Date: 12/17/2020 11:16:15 Dictated By: JOSE PUGH MD
[2020-12-17] MEDS ORDERED: SUCR1TAB36 PO (11:48)
--- NOTE | 2020-12-17 13:08 | Cardiology Progress Note ---
Progress Note-Cardiology Events since last exam Date Seen by Provider: Dec 17, 2020 Time Seen by Provider: 13:04 Events since last exam I am following him for chest pain. His chest pain has improved overnight since starting intravenous pantoprazole. He underwent an endoscopy earlier today that showed reflux esophagitis. He has been started on Carafate. He denies dyspnea, palpitations, syncope, or ankle edema. Certain portions of this document may have been dictated utilizing voice recognition technology. Inherent to this technology, typographical and grammatical errors may exist. As much as I am diligent to identify and correct these mistakes, some errors may remain in the document. Vitals Last set of Vitals Signs Vital Signs 12/17/20 12/17/20 12/17/20 12/17/20 12/17/20 04:00 08:16 10:20 10:35 12:50 Temp 36.7 Pulse 49 Resp 18 B/P (MAP) 127/92 (104) Pulse Ox 99 O2 Delivery Room Air O2 Flow Rate 10 Labs Labs Laboratory Tests 12/17/20 05:15 12/17/20 05:25 Exam Vital Signs Vital Signs Date Time Temp Pulse Resp B/P (MAP) Pulse Ox O2 Delivery O2 Flow Rate FiO2 12/17/20 12:50 49 12/17/20 10:35 18 99 Room Air 12/17/20 10:20 10 12/17/20 08:16 36.7 12/17/20 04:00 127/92 (104) Physical Exam General: Alert. No acute distress. Eye: No xanthelasma. HENT: Normocephalic. Neck: Jugular venous pressure does not appear elevated. Respiratory: Lungs are clear to auscultation. Respirations are non-labored. Breath sounds are equal. Symmetrical chest wall expansion. Cardiovascular: Normal rate. Regular rhythm. No murmur. No gallop. No edema. Gastrointestinal: Soft. Normal bowel sounds. Skin: Warm. Dry. Neurologic: Alert and oriented to person, place, time. Cranial nerves 3-11 grossly intact. Psychiatric: Cooperative. Appropriate mood & affect. Labs Laboratory Tests Test 12/17/20 05:15 12/17/20 05:25 Range/Units White Blood Count 12.2 H 4.3-11.0 10^3/uL Red Blood Count 4.49 4.30-5.52 10^6/uL Hemoglobin 13.7 13.3-17.7 g/dL Hematocrit 40 40-54 % Mean Corpuscular Volume 89 80-99 fL Mean Corpuscular Hemoglobin 31 25-34 pg Mean Corpuscular Hemoglobin Concent 34 32-36 g/dL Red Cell Distribution Width 13.3 10.0-14.5 % Platelet Count 290 130-400 10^3/uL Mean Platelet Volume 10.2 9.0-12.2 fL Sodium Level 136 135-145 MMOL/L Potassium Level 3.5 L 3.6-5.0 MMOL/L Chloride Level 105 98-107 MMOL/L Carbon Dioxide Level 21 21-32 MMOL/L Anion Gap 10 5-14 MMOL/L Blood Urea Nitrogen 10 7-18 MG/DL Creatinine 0.81 0.60-1.30 MG/DL Estimat Glomerular Filtration Rate 100 BUN/Creatinine Ratio 12 Glucose Level 88 70-105 MG/DL Calcium Level 8.7 8.5-10.1 MG/DL Diagnosis/Problems Diagnosis/Problems (1) Chest pain Status: Acute Assessment & Plan: As above, his endoscopy showed reflux esophagitis. He has improved with proton pump inhibitor. This was most likely the cause of his chest discomfort. He does not need any additional cardiac testing at this point in time. He can be discharged from a cardiac standpoint. I gave him my contact information in the event he has recurrent chest discomfort in the future. (2) Gastroesophageal reflux disease with esophagitis Assessment & Plan: As above, I suspect this was causing the patient's chest discomfort. He will be discharged on sucralfate and pantoprazole. (3) Hypertensive urgency Assessment & Plan: Although not documented, by report from the emergency room physician, his systolic blood pressure was over 190 mmHg when he first presented. He was also having active chest pain. His blood pressures are now improved. Continue outpatient antihypertensive medication. (4) Abnormal ECG Assessment & Plan: He has a borderline abnormal electrocardiogram showing left anterior hemiblock with poor R wave progression. However, there are no ischemic changes and his echocardiogram did not show any regional wall motion abnormalities while he was still having active chest discomfort. This is likely just a primary conduction abnormality of no clinical significance. The poor R wave progression may have just been due to lead placement. There is no indication for stress testing at this time. (5) Mixed hyperlipidemia Assessment & Plan: He did not report a history of hyperlipidemia but his LDL level is fairly elevated. This can be followed by his primary provider after discharge. However, he is currently in flux with his living situation. He ultimately plans to move to [place]. I do not see any strong indication to start statin medication at this time. (6) Primary hypertension Assessment & Plan: As above, continue outpatient antihypertensive medication. AFIA HUFFMAN JR, MD Dec 17, 2020 13:08
== END 2020-12-17 13:10 | DRG 392 ==
LOC: ER FS 21:50 → CSD 12-16 00:45
PROVIDERS: ADMIT Family Medicine; ATTEND Family Medicine
PROC: 0DB48ZX Excision of Esophagogastric Junction, Via Natural or Artificial Opening Endoscopic, Diagnostic (ICD-10-PCS; principal; 2020-12-16)
PROC: 0DB68ZX Excision of Stomach, Via Natural or Artificial Opening Endoscopic, Diagnostic (ICD-10-PCS; 2020-12-16)
DX: K21.00 Gastro-esophageal reflux disease with esophagitis, without bleeding (principal); I10 Essential (primary) hypertension; Z21 Asymptomatic human immunodeficiency virus [HIV] infection status; F12.10 Cannabis abuse, uncomplicated; Z90.81 Acquired absence of spleen; K27.9 Peptic ulcer, site unspecified, unspecified as acute or chronic, without hemorrhage or perforation; K22.4 Dyskinesia of esophagus; R94.31 Abnormal electrocardiogram [ECG] [EKG]; I16.0 Hypertensive urgency; E78.2 Mixed hyperlipidemia; K29.70 Gastritis, unspecified, without bleeding; K44.9 Diaphragmatic hernia without obstruction or gangrene; F17.200 Nicotine dependence, unspecified, uncomplicated; Z20.822 Contact with and (suspected) exposure to COVID-19
CPT/HCPCS: 36415; 71045; 80048; 80053; 80061; 80306; 84484; 85007; 85025; 85027; 85379; 85652; 87636; 93005; 93306